=== PATIENT | female | born 1995 | race American Indian/Alaskan Native ===

== ENCOUNTER 2017-09-15 09:16 | Outpatient (CLI) | payer MEDICAID ==
[2017-09-15 10:23] LABS: Bilirubin,Urine NEG (Negative); Blood,Urine NEG (Negative); Ketones,Urine NEG (Negative); Leukocyte Esterase,Urine LG (Negative); Mucus,Urine FEW /HPF; Nitrite,Urine NEG (Negative); Protein,Urine <15 mg/dL mg/dL (Negative); Urobilinogen,Urine < 2.0 mg/dL (<2.0)
[2017-09-15] MEDS ORDERED: LACTATED RINGERS 500 ML IV ONE (10:30)
[2017-09-15 10:49] LABS: Hemoglobin 13.2 gm/dl (10.1-14.3); Mean Corpuscular HGB Conc 33 % (30-34); Mean Corpuscular Hemoglobin 28 pg (28-32); Mean Corpuscular Volume 84 fl (79-97); Red Blood Count 4.76 M/mm3 (3.65-5.03); Red Cell Distribution Width 13.9 % (13.2-15.2); White Blood Count 6.8 K/mm3 (4.5-11.0)
[2017-09-15 11:04] LABS: Alanine Aminotransferase 7 units/L (7-56); Lactate Dehydrogenase 194 units/L (91-180); Uric Acid 4.1 mg/dL (3.5-7.6)
[2017-09-15 11:20] VITALS: BP 125/73
[2017-09-15 11:22] LABS: Platelet Count 133 K/mm3 (140-440)
== END 2017-09-15 11:40 | disposition home or self-care (01) ==
LOC: TRG 09:16
PROVIDERS: ATTEND Obstetrics & Gynecology
DX: O47.03 False labor before 37 completed weeks of gestation, third trimester (principal); Z3A.32 32 weeks gestation of pregnancy
CPT/HCPCS: 36415; 59025; 81001; 82565; 82962; 83615; 84450; 84460; 84550; 85027